=== PATIENT | female | born 1975 | race Caucasian/White ===

== ENCOUNTER 2021-05-15 10:01 | Emergency (ER) | payer OTHER, SELFPAY ==
[2021-05-15 10:02] VITALS: BP 154/78; PULSE 90; RESP 18; TEMP 36.6; O2SAT 98; BMI 36.0
--- NOTE | 2021-05-15 10:05 | NURSING ---
NO OLD EKGS
--- NOTE | 2021-05-15 10:16 | EKG12_ITS ---
Test Reason : DOYLE PAIN Blood Pressure : / mmHG Vent. Rate : 083 BPM Atrial Rate : 083 BPM P-R Int : 136 ms QRS Dur : 090 ms QT Int : 368 ms P-R-T Axes : 063 071 038 degrees QTc Int : 432 ms Normal sinus rhythm Normal ECG Confirmed by SYLVAIN LOPEZ, SANTO ([id number]), sports editor SONIDO VALENCIA ([id number]) on 05/16/2021 11:46:21 AM Referred By: MINA Confirmed By:SANTO NARAYAN MD
--- NOTE | 2021-05-15 10:17 | ED.VIS.CHEST ---
HPI History of Present Illness Chief Complaint: Chest Pain Informant: patient Onset/Context/Timing Onset: Days Activity at onset: gradual Quality: Positive for Heaviness and Pressure Location: Substernal Current Severity: Mild Maximum Severity: Moderate Worsened By: Exertion Associated Symptoms: Negative for Nausea, Vomiting and Dyspnea Narrative Narrative: Patient presents secondary to a day and a half of chest heaviness and tightness. She states pain will get better and worse but never completely resolved. Pain does slightly worsen when she is active and moving her arms. She denies shortness of breath. No cough or congestion. She does state she is had intermittent irregular heartbeat for the last several months. She has not been evaluated for this. She does not feel as if she is going to pass out when this occurs. [facility] Medical History (Updated 05/15/21 @ 11:[address] Michaelle Herron MD) Asthma Home Medications fluticasone propionate [Flovent Diskus] 1 puff INHALATION BID 08/12/14 [History Last Taken 12/30/14 22:00 1] fluticasone propionate [Flonase] 1 spray NARES DAILY 12/31/14 [History Last Taken 12/30/14 22:00 1] ibuprofen 600 mg PO Q6H PRN PRN #30 tablet 07/03/15 [Rx Last Taken Unknown] oxycodone 5 mg PO Q4H PRN PRN #20 tablet 07/03/15 [Rx Last Taken Unknown] Allergy/AdvReac Type Severity Reaction Status Date / Time No Known Allergies Allergy Verified 05/15/21 10:04 Social History Smoking Status: Never smoker ROS ROS ED Constitutional Constitutional ED: Denies chills or fever(s) Eyes Eyes: Denies change in vision ENT ENT ED: Denies sore throat Cardiovascular Cardiovascular: Reports chest pain Respiratory/Chest Respiratory/Chest: Denies cough or dyspnea Gastrointestinal Gastrointestinal: Denies abdominal pain, diarrhea, nausea or vomiting Genitourinary Genitourinary ED: Denies dysuria Musculoskeletal Musculoskeletal: Denies back pain Integumentary Denies rash Neurologic Neurologic: Denies headache(s) or weakness Allergic/Immunologic Allergic/Immunologic ED: Denies urticaria EXAM Physical Exam Const Vital Signs: 05/15/21 10:02 05/15/21 10:23 Temperature 97.9 F Temperature Source Temporal Pulse Rate 90 Respiratory Rate 18 Respiratory Effort Normal Non-Labored Blood Pressure 154/78 H Blood Pressure Mean 103 Pulse Ox 98 Oxygen Delivery Method Room Air Room Air Positive well nourished and well developed General Appearance ED: well developed HEENT normocephalic and atraumatic Eyes PERRL and EOMs intact bilaterally Neck supple Chest Wall inspection of chest normal Chest Narrative: Anterior chest wall tenderness to palpation. No crepitus. Chest: tenderness Resp normal respiratory effort Effort and Inspection: respiratory distress Cardio regular rate and regular rhythm GI normal to inspection, nondistended, normoactive bowel sounds, soft to palpation and non-tender Extremity normal to inspection Neuro oriented x3 and no sensory deficits noted Sensorium / Orientation: awake and alert Motor Exam: strength 5/5 throughout Psych mental status grossly normal Skin no rashes or lesions noted Heart Score History: Slightly/Non-Suspicious ECG: Normal Age: >45 - <65 years Risk Factors: No Risk Factors Troponin: </= Normal Limit Score: 1 MDM MDM MDM Narrative Medical decision making narrative: Patient was given aspirin. Lab work, EKG, chest x-ray obtained. Lab Data Attestation: I reviewed the patient's lab results. Labs: Laboratory Results - last 24 hr 05/15/21 05/15/21 05/15/21 10:13 10:13 10:13 WBC 8.4 RBC 5.10 Hgb 15.1 H Hct 45.2 MCV 88.6 MCH 29.6 MCHC 33.4 RDW Std Deviation 40.7 RDW Coeff of [place] 12.4 Plt Count 319 MPV 10.1 Immature Gran % (Auto) 0.200 Neut % (Auto) 64.4 Lymph % (Auto) 22.7 Richardson % (Auto) 6.1 Eos % (Auto) 5.9 H Baso % (Auto) 0.7 Absolute Neuts (auto) 5.4 Absolute Lymphs (auto) 1.91 Nucleated RBC % 0 D-Dimer Quant (PE/DVT) 0.39 Sodium 139 Potassium 3.7 Chloride 109 H Carbon Dioxide 25.0 Anion Gap 5 BUN 13 Creatinine 0.60 Estim Creat Clear Calc 101.17 Est GFR (MDRD) Af Amer 137 Est GFR (MDRD) Non-Af 113 BUN/Creatinine Ratio 21.5 H Glucose 96 Calcium 9.1 Troponin I High Sens < 3 L Radiography Chest X-Ray - ED: 1 View, Read by ED Physician, Normal, Heart, Lungs and Mediastinum EKG Initial EKG: Attestation: I personally reviewed and interpreted this EKG as follows: Interpretation: Sinus Rhythm (Sinus at 83 with no acute ischemia.) Treatment and Re-Evaluation Comments:: On repeat examination patient resting comfortably. Test results discussed with patient as well as at bedside. Patient has had greater than 24 hours of constant pain with a negative troponin and negative D-dimer. She does have reproducible chest wall pain. I suspect this is the cause of her chest tightness. I did recommend close follow-up with her doctor regarding this as well as her symptoms of sensing irregular heartbeat. She may need a Holter monitor. Return instructions are provided. Discharge Plan Triage Chief Complaint: Chest Pain ED Provider: Michaelle Herron Dx/Rx/DC Orders Clinical Impression: Chest wall pain Instructions: ED Chest Wall Pain, Costochondritis Prescriptions: No Action fluticasone propionate [Flovent Diskus] 1 PUFF inhaler 1 puff inhalation BID RF: 0 fluticasone propionate [Flonase] 50 mcg/actuation [place].Susp 1 spray NARES DAILY RF: 0 oxycodone 5 MG tablet 5 mg PO Q4H PRN PRN (Reason: Severe Pain (6-10/10)) Qty: 20 RF: 0 ibuprofen 600 MG tablet 600 mg PO Q6H PRN PRN (Reason: mild to moderate pain) Qty: 30 RF: 1 Primary Care Provider: Hemanth Chau Referrals: Hemanth Chau MD [Primary Care Provider] - 5-7 Days Disposition Disposition: Home, Self Care
[2021-05-15] MEDS: Aspirin 81 MG TAB.CHEW 324 MG PO (10:21)
[2021-05-15 10:25] LABS: Absolute Lymphocyte Count 1.91 X10^3/uL (0.83-4.51); Absolute Neutrophil Count 5.4 X10^3/uL (2.0-7.7); Basophil# 0.06 X10^3/uL; Basophil% 0.7 % (0-1); Eosinophils% 5.9 % (0-5); Hematocrit 45.2 % (37-47); Hemoglobin 15.1 g/dL (12.0-15.0); Lymphocyte # 1.91 X10^3/ul (0.83-4.51); Lymphocyte % 22.7 % (19-41); Mean Corp Hgb Conc 33.4 g/dL (32-36); Mean Corpuscular Hgb 29.6 pg (27.0-32.0); Mean Corpuscular Volume 88.6 fL (81-99); Mean Platelet Vol. 10.1 fl (6.2-12.0); Monocyte# 0.51 X10^3/uL; Monocyte% 6.1 % (0-10); NRBC Flagged by Analyzer 0 % (0-5); Neutrophil # 5.41 X10^3/uL (2.7-7.7); Neutrophil % 64.4 % (47-70); Platelet Count 319 K/mm3 (150-450); RBC Distribution Width CV 12.4 % (11.6-14.6); RBC Distribution Width SD 40.7 fl (35.1-43.9); White Blood Count 8.4 K/mm3 (4.4-11.0)
--- NOTE | 2021-05-15 10:30 | RAD_ITS ---
STUDY: X-RAY CHEST REASON FOR EXAM: Female, 45 years old. chest pain TECHNIQUE: Frontal portable view of the chest COMPARISON: None. FINDINGS: The lungs are clear and expanded. There is no demonstrated pleural abnormality. Normal size heart. Normal mediastinum and marlee. Normal visualized pulmonary arteries. Normal visualized aortic arch and descending thoracic aorta. Normal visualized thoracic spine. Normal visualized ribs, clavicles, and shoulders. There is no demonstrated abnormality of the visualized soft tissue structures of the upper abdomen. RAD/Chest 1 View (Portable) IMPRESSION: Normal x-ray examination of the chest. Electronically Signed: Evangelista Narvaez MD at 11:21 EST Tel , Service support ,
[2021-05-15 10:40] LABS: Anion Gap 5 (5-15); BUN 13 mg/dL (7-18); BUN/Creat Ratio 21.5 RATIO (10-20); Calcium,Total 9.1 mg/dL (8.5-10.1); Chloride 109 mmol/L (98-107); D-Dimer Quantitative (DVT/PE) 0.39 FEU/ug/m (0.27-0.49); EST Glomerular Filtration Rate 113 mL/min (>60); Est Glom Filt Rate - Afr Amer 137 mL/min (>60); Estimated Creatinine Clearance 101.17 ml/min; Glucose 96 mg/dL (74-106); Potassium 3.7 mmol/L (3.5-5.1); Sodium Level 139 mmol/L (136-145); Troponin-I HS < 3 pg/mL (3.0-54.0)
[2021-05-15 11:10] VITALS: BP 127/74; PULSE 71; RESP 12; O2SAT 99
[2021-05-15 11:13] VITALS: BP 127/74; PULSE 72; RESP 14; O2SAT 96
== END 2021-05-15 11:14 | disposition home or self-care (01) ==
LOC: ED 11:13
PROVIDERS: Emergency Provider Emergency Medicine
DX: R07.89 Other chest pain (principal); J45.909 Unspecified asthma, uncomplicated
CPT/HCPCS: 71045; 80048; 84484; 85025; 85379; 93005; 99285; A4216

== ENCOUNTER → 2024-05-29 | Outpatient (CLI) | payer OTHER, SELFPAY | END | disposition home or self-care (01) | LOC: LABSPEC 15:33 | PROVIDERS: Referring Provider Otolaryngology Otolaryngology/Facial Plastic Surgery; Visit Provider Otolaryngology Otolaryngology/Facial Plastic Surgery | DX: J32.8 Other chronic sinusitis (principal) | CPT/HCPCS: 87070; 87077; 87186; 87205 ==

== ENCOUNTER → 2024-08-07 | Outpatient (CLI) | payer SELFPAY, OTHER ==
--- NOTE | 2024-08-07 13:35 | MRI_ITS ---
PROCEDURE: BRAIN W/WO CONTRAST REASON FOR EXAM: Hearing loss TECHNIQUE: Multisequence multiplanar MR images of the brain were obtained before and after the administration of intravenous contrast. COMPARISON: None. FINDINGS: No acute intracranial hemorrhage, midline shift or mass effect. No diffusion restriction to suggest acute ischemia. 5th, 7th and 8th cranial nerve complexes are intact. No IAC mass or pathologic enhancement. Cerebral volume is maintained. Solitary hyperintense FLAIR focus in the right frontal lobe white matter. No other parenchymal signal abnormalities. No hydrocephalus. Extensive pansinusitis width near complete opacification of all paranasal sinuses. Mastoid air cells are relatively clear. MRI/Brain W/WO Contrast IMPRESSION: 1. No acute intracranial abnormality or pathologic enhancement. No IAC mass. 2. Solitary focus of hyperintense FLAIR signal in the right frontal lobe white matter which is nonspecific. 3. Severe pansinusitis. [facility]
== END | disposition home or self-care (01) ==
PROVIDERS: PCP Otolaryngology Otolaryngology/Facial Plastic Surgery; Referring Provider Otolaryngology Otolaryngology/Facial Plastic Surgery; Visit Provider Otolaryngology Otolaryngology/Facial Plastic Surgery
DX: H91.90 Unspecified hearing loss, unspecified ear (principal)
CPT/HCPCS: 70553; A9575

== ENCOUNTER → 2024-09-26 | Outpatient (CLI) | payer SELFPAY ==
--- NOTE | 2024-09-26 09:14 | BI_ITS ---
EXAM: SCRN MAMM (CAD)W/JENNIFER BILAT 09/26/2024 CLINICAL HISTORY: F, Age 48 y/o , SCREENING TECHNIQUE: Bilateral screening digital breast tomosynthesis with 2D and 3D images. Computer aided detection. COMPARISON: Baseline examination, no priors FINDINGS: TISSUE DENSITY: The breast tissue is composed of scattered area of fibroglandular density. Bilateral Breast Mammographic Findings: No significant masses, calcifications or other abnormalities are identified. BI/SCRN MAMM (CAD)W/JENNIFER BILAT IMPRESSION: Right Breast: BIRADS 1 NEGATIVE. Left Breast: BIRADS 1 NEGATIVE. OVERALL FINAL ASSESSMENT: BIRADS 1 NEGATIVE. RECOMMENDATION: Routine annual follow-up in 1 Year A letter with findings and recommendations will be mailed to the patient. Reading Location: [id number]
== END | disposition home or self-care (01) ==
LOC: OPBI 09:11
PROVIDERS: PCP Otolaryngology Otolaryngology/Facial Plastic Surgery; Referring Provider Nurse Practitioner Family; Visit Provider Nurse Practitioner Family
DX: Z12.31 Encounter for screening mammogram for malignant neoplasm of breast (principal)
CPT/HCPCS: 77063; 77067